=== PATIENT | female | born 1945 | race Caucasian/White ===

== ENCOUNTER 2018-04-18 06:41 | Inpatient (IN) | payer MEDICARE, OTHER, SELFPAY ==
[~2018-04-18] VITALS: Ht 152.4 cm; Wt 75.0 kg
[2018-04-18] MEDS ORDERED: ONDANSETRON 2MG/ML, 2ML IVPush ONE (07:00)
[2018-04-18] MEDS ORDERED: SODIUM CHLORIDE FLUSH 10ML SYR IVF ONE (07:00)
--- NOTE | 2018-04-18 07:02 | NUR ---
Report from Lorie MCCULLOUGH.
[2018-04-18] MEDS ORDERED: ONDANSETRON 2MG/ML, 2ML ONE (07:03)
[2018-04-18 07:24] LABS: BASOPHILS # (AUTO) 0.02 x10^3/uL (0-0.1); BASOPHILS % (AUTO) 0 % (0-1); EOSINOPHILS # (AUTO) 0.05 x10^3/uL (0-0.4); EOSINOPHILS % (AUTO) 1 % (1-7); LYMPHOCYTES # (AUTO) 1.17 x10^3/uL (1-3.4); LYMPHOCYTES % (AUTO) 14 % (22-44); MD NO; MEAN CORPUSCULAR HEMOGLOBIN 32.6 pg (27.0-34.8); MEAN CORPUSCULAR HGB CONC 33.4 g/dL (32.4-35.8); MEAN CORPUSCULAR VOLUME 97.6 fL (80-100); MEAN PLATELET VOLUME 8.9 fL (7.4-10.4); MONOCYTES # (AUTO) 0.59 x10^3/uL (0.2-0.8); MONOCYTES % (AUTO) 7 % (2-9); NEUTROPHILS # (AUTO) 6.39 x10^3/uL (1.8-6.8); NEUTROPHILS % (AUTO) 78 % (42-75); PLATELET COUNT 181 x10^3/uL (130-400); RED BLOOD COUNT 3.52 x10^6/uL (3.82-5.3); RED CELL DISTRIBUTION WIDTH 13.3 % (9.6-15.2)
[2018-04-18 07:36] LABS: ALBUMIN 3.6 g/dL (3.4-5.0); ANION GAP 8 mmol/L (5-15); CALCIUM 9.7 mg/dL (8.5-10.1); CHLORIDE 107 mmol/L (98-107); CREATININE 1.07 mg/dL (0.55-1.02)
[2018-04-18 07:40] LABS: TROPONIN I < 0.015 ng/mL (0.000-0.045)
--- NOTE | 2018-04-18 08:19 | NUR ---
Pt given water to drink, okay per .
--- NOTE | 2018-04-18 08:44 | NUR ---
PT AMBULATED TO THE BATHROOM WITH STEADY GAIT. URINE SAMPLE SENT TO LAB.
[2018-04-18 09:18] LABS: MICROSCOPIC INDICATED
--- NOTE | 2018-04-18 09:54 | NUR ---
HOSPIRALIST AT BEDSIDE.
--- NOTE | 2018-04-18 10:10 | NUR ---
REPORT GIVEN TO DEEJAY MCCULLOUGH.
--- NOTE | 2018-04-18 10:15 | NUR ---
PT STATED THAT SHE DOES NOT WANT TO BE ADMITTED. PA AT BEDSIDE. PT WOULD LIKE TO EAT AND THEN AMA. PER PA ORDER TRAY FOR PT, REGULAR DIET.
--- NOTE | 2018-04-18 10:20 | NUR ---
INFORMED HOSPITALIST OF PTS AMA DECISION.
--- NOTE | 2018-04-18 10:37 | NUR ---
PHONE CALL FROM CALIXTO FROM [facility]. THEY ARE MONITORING HER HOLTER MONITOR, AND THEY SAID THAT SHE HAS 7 TO 12 SECOND LONG PAUSE. ADVISED THAT THE PT STOP CARVADILOL AND COME TO AN APPT WITH DR MIRZA AT 3PM. INFORMED PA. PA AT BEDSIDE AND EXPLAINED TO PT. PT WILL NOW CONSENT TO BE ADMITTED.
--- NOTE | 2018-04-18 10:42 | NUR ---
CALLED HOSPITALIST AND LET HIM KNOW PT IS NOW GOING TO BE ADMITTED AND LET HIM KNOW WHAT THE OFFICE HAD SAID.
--- NOTE | 2018-04-18 10:43 | NUR ---
CALLED CALIXTO AT [facility] THAT PT WILL NOW BE ADMITTED. SHE STATED THAT SHE WILL LET DR. MENDIETA KNOW.
[2018-04-18] MEDS ORDERED: POLYETHYLENE GLYCOL 17 GM PACKET PO PRN (11:00)
[2018-04-18] MEDS: SODIUM CHLORIDE 0.9% 1,000 ML IV SCH (11:05)
[2018-04-18] MEDS ORDERED: ATROPINE 0.4 MG/ML, 1ML IVPush PRN (11:30)
[2018-04-18] MEDS ORDERED: ASPIRIN 81 MG TABLET EC PO ONE (11:30)
--- NOTE | 2018-04-18 11:39 | NUR ---
REPORT GIVEN TO CAMERON MCCULLOUGH.
[2018-04-18 11:55] VITALS: BP 111/70
[2018-04-18 12:54] VITALS: BP 131/79
[2018-04-18] MEDS ORDERED: CEFAZOLIN PMX 1GM/50ML 50 ML IVPB ONE (13:00)
[2018-04-18 13:57] LABS: TROPONIN I < 0.015 ng/mL (0.000-0.045)
[2018-04-18] MEDS ORDERED: ATOR20TA86 PO (15:18)
[2018-04-18] MEDS ORDERED: LEVO300T4 PO (15:18)
[2018-04-18 19:41] LABS: TROPONIN I < 0.015 ng/mL (0.000-0.045)
[2018-04-18] MEDS: ATORVASTATIN 40 MG TABLET PO SCH (20:02)
[2018-04-18 20:05] VITALS: BP 99/57
[2018-04-19 00:47] VITALS: BP 105/57
[2018-04-19 01:05] LABS: TROPONIN I < 0.015 ng/mL (0.000-0.045)
[2018-04-19 05:31] LABS: BASOPHILS # (AUTO) 0.03 x10^3/uL (0-0.1); BASOPHILS % (AUTO) 1 % (0-1); EOSINOPHILS # (AUTO) 0.06 x10^3/uL (0-0.4); EOSINOPHILS % (AUTO) 1 % (1-7); LYMPHOCYTES # (AUTO) 1.72 x10^3/uL (1-3.4); LYMPHOCYTES % (AUTO) 26 % (22-44); MD NO; MEAN CORPUSCULAR HEMOGLOBIN 33.8 pg (27.0-34.8); MEAN CORPUSCULAR HGB CONC 34.4 g/dL (32.4-35.8); MEAN CORPUSCULAR VOLUME 98.1 fL (80-100); MEAN PLATELET VOLUME 8.9 fL (7.4-10.4); MONOCYTES % (AUTO) 8 % (2-9); NEUTROPHILS # (AUTO) 4.37 x10^3/uL (1.8-6.8); NEUTROPHILS % (AUTO) 65 % (42-75); PLATELET COUNT 163 x10^3/uL (130-400); RED CELL DISTRIBUTION WIDTH 13.7 % (9.6-15.2)
[2018-04-19 05:37] LABS: CHLORIDE 107 mmol/L (98-107); CREATININE 1.21 mg/dL (0.55-1.02)
[2018-04-19 05:50] LABS: ANION GAP 7 mmol/L (5-15); CALCIUM 8.8 mg/dL (8.5-10.1); THYROID STIMULATING HORMONE 0.228 mIU/L (0.358-3.740)
[2018-04-19] MEDS: ASPIRIN 81 MG TABLET EC PO SCH (06:02)
[2018-04-19] MEDS: SODIUM CHLORIDE 0.9% 1,000 ML IV SCH ×3 (06:03→14:00)
[2018-04-19] MEDS ORDERED: FENTANYL PF 100 MCG/2ML ONE (09:20)
[2018-04-19] MEDS ORDERED: LIDOCAINE 2%, 20ML ONE (09:20)
[2018-04-19] MEDS ORDERED: CEFAZOLIN 1,000 MG ONE (09:20)
[2018-04-19] MEDS ORDERED: MIDAZOLAM 1 MG/ML, 5ML ONE (09:20)
[2018-04-19] MEDS ORDERED: HOLD MEDICATION MC PRN (11:00)
[2018-04-19] MEDS ORDERED: ACETAMINOPHEN 325 MG TABLET PO PRN (11:00)
[2018-04-19 12:01] VITALS: BP 115/73
[2018-04-19] MEDS: CEFAZOLIN PMX 1GM/50ML 50 ML IVPB SCH (18:20)
[2018-04-19 19:47] VITALS: BP 108/69
[2018-04-19] MEDS: SODIUM CHLORIDE FLUSH 10ML SYR IVF SCH (20:12)
[2018-04-19] MEDS: ATORVASTATIN 40 MG TABLET PO SCH (20:12)
[2018-04-20 01:53] VITALS: BP 113/68
[2018-04-20] MEDS: SODIUM CHLORIDE 0.9% 1,000 ML IV SCH (01:57)
[2018-04-20] MEDS: CEFAZOLIN PMX 1GM/50ML 50 ML IVPB SCH (01:57)
[2018-04-20] MEDS: ASPIRIN 81 MG TABLET EC PO SCH (06:02)
[2018-04-20 07:30] VITALS: BP 151/81
[2018-04-20 08:54] LABS: BASOPHILS # (AUTO) 0.03 x10^3/uL (0-0.1); BASOPHILS % (AUTO) 0 % (0-1); EOSINOPHILS # (AUTO) 0.05 x10^3/uL (0-0.4); EOSINOPHILS % (AUTO) 1 % (1-7); LYMPHOCYTES # (AUTO) 0.95 x10^3/uL (1-3.4); LYMPHOCYTES % (AUTO) 12 % (22-44); MD NO; MEAN CORPUSCULAR HGB CONC 33.6 g/dL (32.4-35.8); MEAN CORPUSCULAR VOLUME 98.3 fL (80-100); MEAN PLATELET VOLUME 9.1 fL (7.4-10.4); MONOCYTES # (AUTO) 0.61 x10^3/uL (0.2-0.8); MONOCYTES % (AUTO) 8 % (2-9); NEUTROPHILS # (AUTO) 6.13 x10^3/uL (1.8-6.8); NEUTROPHILS % (AUTO) 79 % (42-75); PLATELET COUNT 158 x10^3/uL (130-400); RED BLOOD COUNT 3.45 x10^6/uL (3.82-5.3); RED CELL DISTRIBUTION WIDTH 13.4 % (9.6-15.2)
[2018-04-20] MEDS: SODIUM CHLORIDE FLUSH 10ML SYR IVF SCH (09:00)
[2018-04-20 09:02] LABS: ALBUMIN 3.3 g/dL (3.4-5.0); ANION GAP 7 mmol/L (5-15); CHLORIDE 108 mmol/L (98-107); CREATININE 1.02 mg/dL (0.55-1.02)
== END 2018-04-20 12:38 | disposition home or self-care (01) | DRG 242 ==
LOC: ED 07:59 → EDIP 08:12 → 5SO 11:57 → OBSVTOIN 16:27
PROVIDERS: ADMIT Family Medicine; ATTEND Family Medicine
PROC: 0JH606Z Insertion of Pacemaker, Dual Chamber into Chest Subcutaneous Tissue and Fascia, Open Approach (ICD-10-PCS; principal; 2018-04-19)
PROC: 02HK3JZ Insertion of Pacemaker Lead into Right Ventricle, Percutaneous Approach (ICD-10-PCS; 2018-04-19)
PROC: 02H63JZ Insertion of Pacemaker Lead into Right Atrium, Percutaneous Approach (ICD-10-PCS; 2018-04-19)
DX: R00.1 Bradycardia, unspecified (principal); I46.9 Cardiac arrest, cause unspecified; I27.20 Pulmonary hypertension, unspecified; R55 Syncope and collapse; I12.9 Hypertensive chronic kidney disease with stage 1 through stage 4 chronic kidney disease, or unspecified chronic kidney disease; I77.810 Thoracic aortic ectasia; E78.00 Pure hypercholesterolemia, unspecified; N30.90 Cystitis, unspecified without hematuria; N18.9 Chronic kidney disease, unspecified; D64.9 Anemia, unspecified; I25.10 Atherosclerotic heart disease of native coronary artery without angina pectoris; Z96.649 Presence of unspecified artificial hip joint; E78.5 Hyperlipidemia, unspecified; E03.9 Hypothyroidism, unspecified; Z88.1 Allergy status to other antibiotic agents; I25.2 Old myocardial infarction; Z95.5 Presence of coronary angioplasty implant and graft; Z83.3 Family history of diabetes mellitus; Z82.49 Family history of ischemic heart disease and other diseases of the circulatory system; Z95.1 Presence of aortocoronary bypass graft; Z87.891 Personal history of nicotine dependence
CPT/HCPCS: 0399T; 33208; 36415; 71045; 80048; 81001; 82040; 82962; 83735; 83880; 84100; 84443; 84484; 85025; 93005; 93306; 96374; 99156; 99157; 99285; C1779; C1785; C1892; G0378; J0690; J2250; J2405; J3010; J3490; J7030